=== PATIENT | female | born 1960 | race African-American/Black ===

== ENCOUNTER 2016-06-27 10:12 | Emergency (ER) | payer SELFPAY ==
[~2016-06-27] VITALS: Ht 160 cm; Wt 56.0 kg
[2016-06-27 10:57] LABS: HEMATOCRIT. 42.1 % (36.0-48.0); MEAN CORPUSCULAR HEMOGLOBIN 28.5 pg (28.0-32.0); MEAN CORPUSCULAR HGB CONC 33.2 g/dL (31.0-37.0); MEAN CORPUSCULAR VOLUME 85.8 fL (81.0-99.0); PLATELET 206 x1000/uL (130-400); RED CELL DISTRIBUTION WIDTH 14.2 % (11.6-14.6); WHITE BLOOD COUNT 3.8 x1000/uL (4.5-11.0)
[2016-06-27 10:58] LABS: DIFFERENTIAL COMMENT 1
[2016-06-27 11:04] LABS: PROTHROMBIN TIME 10.4 sec
[2016-06-27 11:05] LABS: CLARITY URINE CLOUDY (CLEAR); COLOR URINE YELLOW (YELLOW); GLUCOSE URINE NEGATIVE (NEGATIVE); KETONES URINE NEGATIVE (NEGATIVE); LEUKOCYTE ESTERASE URINE TRACE (NEGATIVE); NITRITE URINE NEGATIVE (NEGATIVE); OCCULT BLOOD URINE NEGATIVE (NEGATIVE); PH URINE 5.5 (4.5-8.0); PROTEIN URINE 1+ (NEGATIVE); SPECIFIC GRAVITY URINE 1.014 (1.005-1.030); UROBILINOGEN URINE 0.2 E.U./dL (0.2-1.0)
[2016-06-27 11:06] LABS: CHLORIDE 107 mEq/L (98-107); INDEX HEMOLYSI 2 (1-3); INDEX ICTERIC 1 (1-4); INDEX LIPEMIC 1 (1-3)
[2016-06-27 11:14] LABS: HCG SCREEN NEGATIVE
[2016-06-27 11:15] LABS: ALANINE AMINOTRANSFERASE 21 IU/L (13-61); ALBUMIN 3.8 g/dL (3.4-5.0); ANION GAP 14; CALCIUM 8.5 mg/dL (8.5-10.1); CARBON DIOXIDE 27 mEq/L (21-32); LACTIC ACID 3.5 mmol/L (0.4-2.0); UREA NITROGEN BLOOD 18 mg/dL (7-21); eGFR > 60 mL/min (>60)
[2016-06-27] MEDS ORDERED: SODIUM CHLORIDE 0.9% 1,000 ML IV ONE (11:15)
[2016-06-27 11:23] LABS: *AMPHETAMINES SCREEN URINE NEGATIVE (NEGATIVE); *BARBITURATES SCREEN URINE NEGATIVE (NEGATIVE); *BENZODIAZEPINES SCREEN URINE NEGATIVE (NEGATIVE); *COCAINE SCREEN URINE NEGATIVE (NEGATIVE); BACTERIA URINE 1+; CANNABINOID URINE SCREEN NEGATIVE (NEGATIVE); ECSTASY MDMA SCREEN URINE NEGATIVE (NEGATIVE); METHADONE URINE SCREEN NEGATIVE (NEGATIVE); OPIATES URINE SCREEN NEGATIVE (NEGATIVE); PHENCYCLIDINE URINE SCREEN NEGATIVE (NEGATIVE); RBC URINE NONE SEEN /hpf (0-2); SQUAMOUS EPITHELIAL CELL URINE FEW /lpf (RARE/1+)
[2016-06-27 11:29] LABS: PLATELET ESTIMATE NORMAL
[2016-06-27 11:46] VITALS: BP 139/85
== END 2016-06-27 12:42 | disposition left against medical advice (07) ==
LOC: ER 10:12
DX: R55 Syncope and collapse (principal)
CPT/HCPCS: 36415; 80053; 80305; 81001; 82962; 83605; 84703; 85025; 85610; 96360; 99284; J7030; Z7610

== ENCOUNTER 2021-05-21 10:16 | Emergency (ER) | payer OTHER, MEDICAID ==
[~2021-05-21] VITALS: Ht 154.9 cm; Wt 58.0 kg
[2021-05-21 10:28] VITALS: BP 153/92
[2021-05-21] MEDS ORDERED: ACETAMINOPHEN 325MG TABLET PO ONE (11:00)
[2021-05-21] MEDS ORDERED: T3 PO (11:55)
== END 2021-05-21 12:36 | disposition home or self-care (01) ==
LOC: ER 11:07
DX: M25.571 Pain in right ankle and joints of right foot (principal); I10 Essential (primary) hypertension; Z98.51 Tubal ligation status
CPT/HCPCS: 73600; 99283